=== PATIENT | female | born 1950 | race Caucasian/White ===

== ENCOUNTER 2023-04-30 08:31 | Inpatient (IN) | payer OTHER ==
[2023-04-30] VITALS (27 sets, daily range): BP systolic 83–120; BP diastolic 45–72; PULSE 35–80; RESP 12–18; TEMP 96.4–98.1; O2SAT 90–100
[~2023-04-30] VITALS: Ht 170.2 cm; Wt 77.2 kg
[2023-04-30] MEDS ORDERED: DOPamine 1600MCG/ML D5W 250 ML IV ONE ×3 (08:33→09:15)
[2023-04-30] MEDS ORDERED: GLUCAGON EMERG KIT 1mg/1ml IV ONE (09:45)
[2023-04-30] MEDS ORDERED: SODIUM CHLORIDE 0.9% 1,000 ML IV ONE ×2 (10:00→11:45)
[2023-04-30 10:12] LABS: Urine Bacteria NONE SEEN /hpf (None Seen); Urine Blood Negative /uL (Negative); Urine Clarity HAZY (Clear); Urine Color Yellow (Yellow); Urine Mucus FEW (None Seen); Urine Protein, UAD 2+ (Negative); Urine Specific Gravity 1.027 (1.001-1.035); Urine WBC 59 /hpf (0 - 5); Urine WBC Clumps PRESENT /hpf (None Seen); Urine pH 5.5 (5.0-8.0)
[2023-04-30 10:17] LABS: Basophils # (auto) 0.1 10 ^3/uL (0-0.2); Basophils % (auto) 0.6 % (0.0-2.0); Eosinophils # (auto) 0.1 10 ^3/uL (0-0.8); Eosinophils % (auto) 0.8 % (0.0-7.0); Hematocrit 30.9 % (36.0-46.0); Hemoglobin 9.7 g/dL (12.2-16.2); Lymphocytes # (auto) 2.1 10 ^3/uL (0.4-5.4); Mean Corpuscular Hemoglobin 29.6 pg (28.0-32.0); Mean Corpuscular Hgb Conc. 31.5 g/dL (32.0-36.0); Mean Corpuscular Volume 94.1 fL (80.0-100.0); Monocytes % (auto) 10.6 % (0.0-12.0); Neutrophils # (auto) 5.9 10 ^3/uL (1.6-8.6); Nucleated Red Blood Cells % 0.2 %; Red Blood Cells 3.28 10^6/uL (4.0-5.20); Red Cell Distribution Width 15.2 % (11.8-14.3); White Blood Cell 9.1 10^3/uL (4.4-10.8)
[2023-04-30 10:25] LABS: Alanine Aminotransferase 671 U/L (7-40); Albumin 4.1 g/dL (3.2-4.8); Alkaline Phosphatase 194 U/L (46-116); Anion Gap 12 (5-15); BUN/Creatinine Ratio 25.2 (10.0-20.0); Bilirubin, Total 0.3 mg/dL (0.2-1.0); Blood Urea Nitrogen 62 mg/dL (9-23); Calcium 8.5 mg/dL (8.5-10.1); Carbon Dioxide 19 mmol/L (20-30); Chloride 99 mmol/L (98-107); Glucose 226 mg/dL (74-106); Sodium 130 mmol/L (136-145); Total Protein 6.2 g/dL (5.7-8.2)
[2023-04-30 10:36] LABS: Aspartate Aminotransferase 1188 U/L (13-40); Potassium 6.2 mmol/L (3.5-5.1)
[2023-04-30] MEDS ORDERED: SODIUM BICARBONATE 8.4% INJ 50ML SYRINGE IV ONE (10:45)
[2023-04-30] MEDS ORDERED: DEXTROSE (50%) 50ML SYRG IV ONE (10:45)
[2023-04-30] MEDS ORDERED: InsuLIN REG 1unit/0.01ml Soln (100units/ml) IV ONE (10:45)
[2023-04-30] MEDS ORDERED: CALCIUM GLUC 1,000mg/50ml-NS 50 ML IV ONE (10:45)
[2023-04-30] MEDS ORDERED: SODIUM ZIRCONIUM CYCL 10 GM PAK PO ONE (10:45)
[2023-04-30] MEDS ORDERED: FUROSEMIDE 20 MG/2 ML VIAL ONE (10:55)
[2023-04-30] MEDS ORDERED: FUROSEMIDE 20 MG/2 ML VIAL IV ONE (11:00)
[2023-04-30] MEDS ORDERED: SODIUM BICARBONATE 8.4% INJ 50ML SYRINGE ONE (11:16)
[2023-04-30] MEDS ORDERED: ATROPINE SULFATE 1 MG/1 ML VIAL ONE (11:23)
[2023-04-30] MEDS: ISOPROTERENOL HCL INJECTION 1 MG in D5W 5% 250 ML IV SCH ×4 (11:45→21:45)
[2023-04-30 11:58] LABS: Platelet Estimate Adequate
[2023-04-30 12:00] LABS: Giant Platelets Few; Large Platelets MODERATE
[2023-04-30] MEDS ORDERED: FUROSEMIDE 40 MG/4 ML VIAL ONE (12:48)
[2023-04-30] MEDS ORDERED: ETOMIDATE (2MG/ML) 20ML VIAL IV ONE ×2 (12:56→14:15)
[2023-04-30] MEDS ORDERED: ROCURONIUM 10MG/ML 10ML VIAL IV ONE ×2 (12:57→14:15)
[2023-04-30] MEDS ORDERED: MIDAZOLAM DRIP 50 mg/50mL 50 ML IV ONE (13:09)
[2023-04-30] MEDS: MIDAZOLAM DRIP 50 mg/50mL 50 ML IV SCH ×2 (13:10→18:37)
[2023-04-30] MEDS ORDERED: NITROGLYCERIN 0.4 MG SL TAB SL PRN (13:30)
[2023-04-30] MEDS ORDERED: PANTOPRAZOLE 40 MG/10 ML VIAL INJ IV ONE (13:30)
[2023-04-30] MEDS ORDERED: DEXTROSE (50%) 50ML SYRG IV PRN (13:30)
[2023-04-30] MEDS ORDERED: MORPHINE SULFATE INJ 2 MG/ml SYRG IV PRN (13:30)
[2023-04-30] MEDS ORDERED: FUR20T PO (13:37)
[2023-04-30] MEDS ORDERED: TROS20TA3 PO (13:37)
[2023-04-30] MEDS ORDERED: CIPR500T4 PO (13:37)
[2023-04-30] MEDS ORDERED: ESTR0.1C5 VG (13:37)
[2023-04-30] MEDS ORDERED: OMEP1CAP70 PO (13:37)
[2023-04-30] MEDS ORDERED: CARV25TA55 PO (13:37)
[2023-04-30] MEDS ORDERED: HYDR1TAB97 PO (13:37)
[2023-04-30] MEDS ORDERED: DULO1CAP5 PO (13:37)
[2023-04-30] MEDS ORDERED: CEPH250C2 PO (13:37)
[2023-04-30] MEDS ORDERED: ATOR20TA50 PO (13:37)
[2023-04-30] MEDS ORDERED: LEVO100T8 PO (13:37)
[2023-04-30] MEDS ORDERED: HYDR-4069 PO (13:37)
[2023-04-30] MEDS ORDERED: ANAG1CAP2 PO (13:37)
[2023-04-30] MEDS ORDERED: PREG-109 PO (13:37)
[2023-04-30] MEDS ORDERED: METF-370 PO (13:37)
[2023-04-30] MEDS ORDERED: cefTRIAXone 1GM/50ML D5W 50 ML IV SCH (13:41)
[2023-04-30] MEDS ORDERED: FUROSEMIDE 40 MG/4 ML VIAL IV ONE (14:15)
[2023-04-30 15:00] LABS: Base Excess -7.5 mmol/L (-2.0-2.0)
[2023-04-30] MEDS ORDERED: FUROSEMIDE 100 MG/10ML VIAL IV ONE (15:15)
[2023-04-30 16:11] LABS: Eosinophils # (auto) 0 10 ^3/uL (0-0.8); Eosinophils % (auto) 0.1 % (0.0-7.0); Hemoglobin 9.9 g/dL (12.2-16.2); Lymphocytes # (auto) 1.1 10 ^3/uL (0.4-5.4); Monocytes # (auto) 1.1 10 ^3/uL (0-1.3)
[2023-04-30 16:13] LABS: Basophils # (auto) 0 10 ^3/uL (0-0.2); Basophils % (auto) 0.3 % (0.0-2.0); Hematocrit 31.7 % (36.0-46.0); Lymphocytes % (auto) 7.9 % (10.0-50.0); Mean Corpuscular Hemoglobin 29.3 pg (28.0-32.0); Mean Corpuscular Hgb Conc. 31.3 g/dL (32.0-36.0); Mean Corpuscular Volume 93.7 fL (80.0-100.0); Neutrophils # (auto) 12.1 10 ^3/uL (1.6-8.6); Neutrophils % (auto) 83.7 % (37.0-80.0); Red Blood Cells 3.39 10^6/uL (4.0-5.20); White Blood Cell 14.4 10^3/uL (4.4-10.8)
[2023-04-30] MEDS: ACCU-CHEK COMFORT CURVE STRIP VI SCH ×2 (16:20→23:13)
[2023-04-30] MEDS: InsuLIN REG 1unit/0.01ml Soln (100units/ml) SC SCH ×2 (16:23→22:00)
[2023-04-30 16:42] LABS: Alanine Aminotransferase 806 U/L (7-40); Albumin 4.2 g/dL (3.2-4.8); Alkaline Phosphatase 202 U/L (46-116); Anion Gap 9 (5-15); Aspartate Aminotransferase > 1000 U/L (13-40); BUN/Creatinine Ratio 20.8 (10.0-20.0); Calcium 8.4 mg/dL (8.5-10.1); Carbon Dioxide 23 mmol/L (20-30); Chloride 101 mmol/L (98-107); Cholesterol 96 mg/dL (< 200); Glucose 269 mg/dL (74-106); HDL Cholesterol 48 mg/dL (40-59); LDL Cholesterol 35 mg/dL (< 100); Potassium 5.4 mmol/L (3.5-5.1); Sodium 133 mmol/L (136-145); Triglycerides 102 mg/dL (< 150)
[2023-04-30 16:43] LABS: Bilirubin, Total 0.4 mg/dL (0.2-1.0); Phosphorus 6.9 mg/dL (2.4-5.1); Total Protein 6.6 g/dL (5.7-8.2)
[2023-04-30] MEDS: SODIUM CHLORIDE 0.9% 1,000 ML IV SCH (17:13)
[2023-04-30 17:17] LABS: Blood Urea Nitrogen 52 mg/dL (9-23)
[2023-04-30 17:19] LABS: Magnesium 3.7 mg/dL (1.6-2.6)
[2023-04-30] MEDS: IPRATROPIUM BROM 0.5 MG/2.5ML INH SOL NEB SCH ×2 (18:00→22:55)
[2023-04-30] MEDS: ALBUTEROL SULF 2.5 MG/0.5ML(0.5%) NEB SOLN NEB SCH ×2 (18:00→22:55)
[2023-04-30 20:17] LABS: Base Excess -4.4 mmol/L (-2.0-2.0)
[2023-04-30] MEDS: cefTRIAXone 1GM/50ML D5W 50 ML IV SCH (21:54)
[2023-04-30] MEDS: fentaNYL Drip 2500mCg/250mlNS 250 ML IV SCH (21:56)
[2023-04-30] MEDS: NOREPINEPHRINE 8 MG/250ML KIT 250 ML IV SCH (23:11)
[2023-04-30] MEDS: SODIUM ZIRCONIUM CYCL 10 GM PAK PO SCH (23:12)
[2023-04-30] MEDS: metroNIDAZOLE 500MG/100ML 100 ML IV SCH (23:12)
[2023-04-30 23:56] LABS: Protein, Urine 107.4 mg/dL (0.0-11.9)
[2023-04-30 23:59] LABS: Creatinine, Urine 176.08 mg/dL (30.0-125.0)
[2023-05-01] VITALS (96 sets, daily range): BP systolic 81–134; BP diastolic 39–77; PULSE 60–80; RESP 18–28; TEMP 96.4–100.4; O2SAT 96–100
[2023-05-01] MEDS: ISOPROTERENOL HCL INJECTION 1 MG in D5W 5% 250 ML IV SCH ×7 (01:05→21:05)
[2023-05-01] MEDS: ALBUTEROL SULF 2.5 MG/0.5ML(0.5%) NEB SOLN NEB SCH ×6 (02:34→22:19)
[2023-05-01] MEDS: IPRATROPIUM BROM 0.5 MG/2.5ML INH SOL NEB SCH ×6 (02:34→22:19)
[2023-05-01 05:13] LABS: INR 1.1 (0.9-1.15); Partial Thromboplastin Time 28.2 SEC (24.5-34.5); Prothrombin Time 11.5 sec (9.3-11.8)
[2023-05-01 05:18] LABS: Basophils # (auto) 0 10 ^3/uL (0-0.2); Basophils % (auto) 0.4 % (0.0-2.0); Eosinophils # (auto) 0.1 10 ^3/uL (0-0.8); Eosinophils % (auto) 1.1 % (0.0-7.0); Hematocrit 27.8 % (36.0-46.0); Hemoglobin 8.8 g/dL (12.2-16.2); Lymphocytes # (auto) 2.8 10 ^3/uL (0.4-5.4); Lymphocytes % (auto) 24.8 % (10.0-50.0); Mean Corpuscular Hemoglobin 29.2 pg (28.0-32.0); Mean Corpuscular Hgb Conc. 31.7 g/dL (32.0-36.0); Mean Corpuscular Volume 92.2 fL (80.0-100.0); Monocytes # (auto) 0.7 10 ^3/uL (0-1.3); Monocytes % (auto) 6.2 % (0.0-12.0); Neutrophils # (auto) 7.6 10 ^3/uL (1.6-8.6); Neutrophils % (auto) 67.5 % (37.0-80.0); Nucleated Red Blood Cells % 0.2 %; Red Blood Cells 3.02 10^6/uL (4.0-5.20); White Blood Cell 11.2 10^3/uL (4.4-10.8)
[2023-05-01 05:25] LABS: Alanine Aminotransferase 708 U/L (7-40); Albumin 3.8 g/dL (3.2-4.8); Alkaline Phosphatase 166 U/L (46-116); Anion Gap 9 (5-15); Aspartate Aminotransferase 951 U/L (13-40); BUN/Creatinine Ratio 22.6 (10.0-20.0); Blood Urea Nitrogen 44 mg/dL (9-23); Calcium 7.5 mg/dL (8.7-10.4); Carbon Dioxide 24 mmol/L (20-30); Chloride 102 mmol/L (98-107); Glucose 136 mg/dL (74-106); Potassium 4.4 mmol/L (3.5-5.1); Sodium 135 mmol/L (136-145)
[2023-05-01 05:26] LABS: Bilirubin, Total 0.2 mg/dL (0.2-1.0)
[2023-05-01] MEDS: SODIUM CHLORIDE 0.9% 1,000 ML IV SCH ×2 (05:35→14:13)
[2023-05-01] MEDS: InsuLIN REG 1unit/0.01ml Soln (100units/ml) SC SCH ×3 (05:38→18:01)
[2023-05-01] MEDS: metroNIDAZOLE 500MG/100ML 100 ML IV SCH ×2 (05:38→14:13)
[2023-05-01] MEDS: ACCU-CHEK COMFORT CURVE STRIP VI SCH ×3 (05:38→17:59)
[2023-05-01 05:46] LABS: Bilirubin, Direct 0.1 mg/dL (<0.3)
[2023-05-01 07:15] LABS: Base Excess -4.2 mmol/L (-2.0-2.0)
[2023-05-01] MEDS: cefTRIAXone 1GM/50ML D5W 50 ML IV SCH ×2 (08:44→08:46)
[2023-05-01] MEDS: PANTOPRAZOLE 40 MG/10 ML VIAL INJ IV SCH (09:47)
[2023-05-01] MEDS: SODIUM ZIRCONIUM CYCL 10 GM PAK PO SCH ×2 (09:48→21:27)
[2023-05-01] MEDS ORDERED: FUROSEMIDE 100 MG/10ML VIAL IV SCH (10:00)
[2023-05-01] MEDS ORDERED: ENOXAPARIN SOD 30 MG/0.3 ML SYRINGE SC SCH (10:00)
[2023-05-01] MEDS ORDERED: DOXYCYCLINE 100MG/250ML 250 ML IV SCH (11:15)
[2023-05-01] MEDS ORDERED: cefTRIAXone 1GM/50ML D5W 50 ML IV SCH (11:15)
[2023-05-01] MEDS: MIDAZOLAM DRIP 50 mg/50mL 50 ML IV SCH (12:25)
[2023-05-01] MEDS: NOREPINEPHRINE 8 MG/250ML KIT 250 ML IV SCH (14:31)
[2023-05-01] MEDS ORDERED: LIDOCAINE 2%HCL (LOCAL ANESTH.) INJ 20ML MDV ONE (14:54)
[2023-05-01] MEDS ORDERED: VANCOMYCIN HCL 1000 MG VL ONE (15:14)
[2023-05-01] MEDS ORDERED: DAPTOmycin 0 MG in SODIUM CHL 0.9% 50 ML IV SCH (15:15)
[2023-05-01] MEDS ORDERED: PROPOFOL 100 ML IV ONE (15:28)
[2023-05-01] MEDS ORDERED: IODIXANOL 320MG/ML 100ML BTL IV ONE (15:41)
[2023-05-01] MEDS ORDERED: DAPTOmycin 500 MG in SODIUM CHL 0.9% 50 ML IV ONE (15:45)
[2023-05-01] MEDS ORDERED: DAPTOmycin 500 MG in SODIUM CHL 0.9% 50 ML IV SCH (15:45)
[2023-05-01] MEDS ORDERED: VANCOMYCIN 1GM/200ML 0 ML IV ONE (15:54)
[2023-05-01] MEDS: PROPOFOL 100 ML IV SCH (16:07)
[2023-05-01] MEDS: fentaNYL Drip 2500mCg/250mlNS 250 ML IV SCH ×2 (16:29→18:02)
[2023-05-01] MEDS ORDERED: GELATIN 1 SPONGE SIZE 50 TOP ONE (16:48)
[2023-05-01] MEDS ORDERED: DEXTROSE (50%) 50ML SYRG IV PRN (17:15)
[2023-05-01] MEDS ORDERED: ATROPINE SULF 1 MG/10ml SYR IV ONE (18:44)
[2023-05-01] MEDS: PIPERACILLIN-TAZOB 3.375GM 100 ML IV SCH (21:27)
[2023-05-02] VITALS (101 sets, daily range): BP systolic 82–132; BP diastolic 32–90; PULSE 30–68; RESP 16–19; TEMP 98.1–100.9; O2SAT 87–100
[2023-05-02] MEDS: ISOPROTERENOL HCL INJECTION 1 MG in D5W 5% 250 ML IV SCH ×6 (00:25→17:05)
[2023-05-02] MEDS: ACCU-CHEK COMFORT CURVE STRIP VI SCH ×5 (01:45→23:47)
[2023-05-02] MEDS: InsuLIN REG 1unit/0.01ml Soln (100units/ml) SC SCH ×5 (01:47→23:48)
[2023-05-02] MEDS: DOXYCYCLINE 100 MG TAB/CAP PO SCH ×2 (01:47→09:03)
[2023-05-02] MEDS: ALBUTEROL SULF 2.5 MG/0.5ML(0.5%) NEB SOLN NEB SCH ×6 (02:26→22:11)
[2023-05-02] MEDS: IPRATROPIUM BROM 0.5 MG/2.5ML INH SOL NEB SCH ×6 (02:26→22:11)
[2023-05-02] MEDS: MIDAZOLAM DRIP 50 mg/50mL 50 ML IV SCH (02:50)
[2023-05-02 03:50] LABS: Eosinophils # (auto) 0.3 10 ^3/uL (0-0.8); Hematocrit 24.8 % (36.0-46.0); Monocytes # (auto) 0.8 10 ^3/uL (0-1.3); Nucleated Red Blood Cells % 0.1 %; Red Cell Distribution Width 15.3 % (11.8-14.3)
[2023-05-02 03:53] LABS: Basophils # (auto) 0 10 ^3/uL (0-0.2); Basophils % (auto) 0.3 % (0.0-2.0); Eosinophils % (auto) 2.8 % (0.0-7.0); Hemoglobin 7.9 g/dL (12.2-16.2); Lymphocytes # (auto) 1.5 10 ^3/uL (0.4-5.4); Lymphocytes % (auto) 14.2 % (10.0-50.0); Mean Corpuscular Hemoglobin 29.9 pg (28.0-32.0); Mean Corpuscular Hgb Conc. 32.1 g/dL (32.0-36.0); Mean Corpuscular Volume 93.3 fL (80.0-100.0); Monocytes % (auto) 7.9 % (0.0-12.0); Neutrophils # (auto) 7.8 10 ^3/uL (1.6-8.6); Neutrophils % (auto) 74.8 % (37.0-80.0); Red Blood Cells 2.65 10^6/uL (4.0-5.20); White Blood Cell 10.4 10^3/uL (4.4-10.8)
[2023-05-02 04:00] LABS: % Iron Saturation 5.5 % (15-50)
[2023-05-02 04:05] LABS: Alanine Aminotransferase 483 U/L (7-40); Albumin 3.4 g/dL (3.2-4.8); Alkaline Phosphatase 142 U/L (46-116); Anion Gap 6 (5-15); Aspartate Aminotransferase 275 U/L (13-40); Bilirubin, Total 0.3 mg/dL (0.2-1.0); Carbon Dioxide 25 mmol/L (20-30); Chloride 105 mmol/L (98-107); Glucose 166 mg/dL (74-106); Potassium 3.5 mmol/L (3.5-5.1); Sodium 136 mmol/L (136-145); Total Protein 5.4 g/dL (5.7-8.2)
[2023-05-02 04:22] LABS: Blood Urea Nitrogen 28 mg/dL (9-23)
[2023-05-02] MEDS: PIPERACILLIN-TAZOB 3.375GM 100 ML IV SCH (05:15)
[2023-05-02] MEDS: fentaNYL Drip 2500mCg/250mlNS 250 ML IV SCH (05:35)
[2023-05-02] MEDS ORDERED: VANCOMYCIN 1GM/200ML 200 ML IV SCH (06:00)
[2023-05-02 06:55] LABS: Giant Platelets Few; Large Platelets MODERATE; Platelet Estimate Decreased
[2023-05-02 07:59] LABS: Base Excess -0.3 mmol/L (-2.0-2.0)
[2023-05-02] MEDS ORDERED: SODIUM FERR GLUC 62.5MG/5ML 125 MG in SODIUM CHL 0.9% 100 ML IV ONE (08:30)
[2023-05-02 08:37] LABS: Hepatitis B Surface Antigen Negative (Negative)
[2023-05-02 08:58] LABS: Hepatitis A Ab IgM Negative
[2023-05-02 08:59] LABS: Hepatitis B Core IgM Negative; Hepatitis C Antibody Negative (Negative)
[2023-05-02] MEDS: PANTOPRAZOLE 40 MG/10 ML VIAL INJ IV SCH (09:04)
[2023-05-02] MEDS: VANCOMYCIN 1GM/200ML 200 ML IV SCH (09:04)
[2023-05-02 09:10] LABS: Hepatitis B Core Total AB Negative (Negative)
[2023-05-02] MEDS ORDERED: ENOXAPARIN SOD 30 MG/0.3 ML SYRINGE SC SCH (10:00)
[2023-05-02 10:15] LABS: Hepatitis B Surface Antibody Negative (Negative); Hepatitis C Antibody Negative (Negative)
[2023-05-02 10:16] LABS: Hepatitis A Total Antibody Negative (Negative); Hepatitis B Surface Antigen Negative (Negative)
[2023-05-02] MEDS: ACETAMINOPHEN 650 mg PER 20.3 mL UD GT PRN ×2 (13:26→20:46)
[2023-05-02] MEDS: PROPOFOL 100 ML IV SCH (16:00)
[2023-05-02] MEDS: NOREPINEPHRINE 8 MG/250ML KIT 250 ML IV SCH ×2 (17:14→20:47)
[2023-05-02] MEDS: CEFEPIME 2GM/50ML NS 50 ML IV SCH (22:23)
[2023-05-03] VITALS (104 sets, daily range): BP systolic 96–149; BP diastolic 35–90; PULSE 65–78; RESP 9–21; TEMP 97–100.8; O2SAT 98–100
[2023-05-03] MEDS: IPRATROPIUM BROM 0.5 MG/2.5ML INH SOL NEB SCH ×6 (02:10→22:33)
[2023-05-03] MEDS: ALBUTEROL SULF 2.5 MG/0.5ML(0.5%) NEB SOLN NEB SCH ×5 (02:10→22:33)
[2023-05-03 04:15] LABS: Basophils # (auto) 0 10 ^3/uL (0-0.2); Basophils % (auto) 0.3 % (0.0-2.0); Eosinophils # (auto) 0.2 10 ^3/uL (0-0.8); Hematocrit 28.6 % (36.0-46.0); Hemoglobin 9.2 g/dL (12.2-16.2); Lymphocytes # (auto) 1.1 10 ^3/uL (0.4-5.4); Lymphocytes % (auto) 9.9 % (10.0-50.0); Mean Corpuscular Hemoglobin 29.7 pg (28.0-32.0); Mean Corpuscular Hgb Conc. 32.1 g/dL (32.0-36.0); Mean Corpuscular Volume 92.3 fL (80.0-100.0); Monocytes # (auto) 1.1 10 ^3/uL (0-1.3); Monocytes % (auto) 9.1 % (0.0-12.0); Neutrophils # (auto) 9.1 10 ^3/uL (1.6-8.6); Neutrophils % (auto) 78.7 % (37.0-80.0); Nucleated Red Blood Cells % 0.2 %; Red Cell Distribution Width 15.2 % (11.8-14.3); White Blood Cell 11.5 10^3/uL (4.4-10.8)
[2023-05-03 04:27] LABS: Calcium 7.3 mg/dL (8.7-10.4); Chloride 107 mmol/L (98-107); Potassium 3.8 mmol/L (3.5-5.1); Sodium 137 mmol/L (136-145)
[2023-05-03 04:28] LABS: Anion Gap 6 (5-15); Carbon Dioxide 24 mmol/L (20-30)
[2023-05-03 04:33] LABS: BUN/Creatinine Ratio 23.1 (10.0-20.0); Blood Urea Nitrogen 18 mg/dL (9-23); Glucose 140 mg/dL (74-106)
[2023-05-03 04:57] LABS: Platelet Estimate Decreased
[2023-05-03 04:58] LABS: Giant Platelets Few
[2023-05-03] MEDS: ACCU-CHEK COMFORT CURVE STRIP VI SCH ×3 (05:54→19:59)
[2023-05-03] MEDS: InsuLIN REG 1unit/0.01ml Soln (100units/ml) SC SCH ×3 (05:54→19:58)
[2023-05-03 07:59] LABS: Base Excess 0.4 mmol/L (-2.0-2.0)
[2023-05-03] MEDS: PANTOPRAZOLE 40 MG/10 ML VIAL INJ IV SCH (10:00)
[2023-05-03] MEDS: CEFEPIME 2GM/50ML NS 50 ML IV SCH (10:00)
[2023-05-03] MEDS: VANCOMYCIN 1GM/200ML 200 ML IV SCH (10:00)
[2023-05-03] MEDS ORDERED: FUROSEMIDE 20 MG/2 ML VIAL ONE (11:24)
[2023-05-03] MEDS ORDERED: FUROSEMIDE 20 MG/2 ML VIAL IV ONE (11:30)
[2023-05-03] MEDS ORDERED: IRON SUCROSE COMPLEX 100 ML IV SCH (12:00)
[2023-05-03] MEDS: MIDAZOLAM DRIP 50 mg/50mL 50 ML IV SCH (13:45)
[2023-05-03] MEDS: SODIUM FERR GLUC 125 MG in NS 100 ML IV SCH (13:57)
[2023-05-03 14:11] LABS: Base Excess -0.7 mmol/L (-2.0-2.0)
[2023-05-03] MEDS: PROPOFOL 100 ML IV SCH (15:04)
[2023-05-03] MEDS: ACETAMINOPHEN 650 mg PER 20.3 mL UD GT PRN (15:10)
[2023-05-03] MEDS: levoFLOXacin 500MG 100 ML IV SCH (16:38)
[2023-05-03] MEDS: fentaNYL Drip 2500mCg/250mlNS 250 ML IV SCH (19:58)
[2023-05-04] VITALS (105 sets, daily range): BP systolic 107–171; BP diastolic 42–103; PULSE 65–91; RESP 14–29; TEMP 96.8–99.5; O2SAT 88–100
[2023-05-04] MEDS: ACCU-CHEK COMFORT CURVE STRIP VI SCH ×5 (00:54→23:41)
[2023-05-04] MEDS: IPRATROPIUM BROM 0.5 MG/2.5ML INH SOL NEB SCH ×6 (02:48→22:37)
[2023-05-04] MEDS: ALBUTEROL SULF 2.5 MG/0.5ML(0.5%) NEB SOLN NEB SCH ×6 (02:48→22:37)
[2023-05-04 04:42] LABS: Chloride 107 mmol/L (98-107); Potassium 3.9 mmol/L (3.5-5.1); Sodium 140 mmol/L (136-145)
[2023-05-04 04:43] LABS: Anion Gap 11 (5-15); Calcium 7.9 mg/dL (8.7-10.4); Carbon Dioxide 22 mmol/L (20-30)
[2023-05-04 04:47] LABS: Basophils # (auto) 0 10 ^3/uL (0-0.2); Basophils % (auto) 0.2 % (0.0-2.0); Eosinophils # (auto) 0.4 10 ^3/uL (0-0.8); Eosinophils % (auto) 3.2 % (0.0-7.0); Hematocrit 31.8 % (36.0-46.0); Hemoglobin 10.2 g/dL (12.2-16.2); Lymphocytes # (auto) 1.2 10 ^3/uL (0.4-5.4); Mean Corpuscular Hgb Conc. 31.9 g/dL (32.0-36.0); Mean Corpuscular Volume 93.9 fL (80.0-100.0); Monocytes # (auto) 1.3 10 ^3/uL (0-1.3); Monocytes % (auto) 10.1 % (0.0-12.0); Neutrophils # (auto) 9.5 10 ^3/uL (1.6-8.6); Neutrophils % (auto) 76.5 % (37.0-80.0); Red Blood Cells 3.39 10^6/uL (4.0-5.20); Red Cell Distribution Width 15.5 % (11.8-14.3); White Blood Cell 12.4 10^3/uL (4.4-10.8)
[2023-05-04 04:48] LABS: BUN/Creatinine Ratio 18.9 (10.0-20.0); Blood Urea Nitrogen 14 mg/dL (9-23); Glucose 145 mg/dL (74-106)
[2023-05-04] MEDS: NOREPINEPHRINE 8 MG/250ML KIT 250 ML IV SCH (04:52)
[2023-05-04] MEDS: InsuLIN REG 1unit/0.01ml Soln (100units/ml) SC SCH ×5 (06:00→23:42)
[2023-05-04 07:07] LABS: Base Excess -3.4 mmol/L (-2.0-2.0)
[2023-05-04] MEDS ORDERED: methylPREDNISolone SOD SUCC 40 MG/ML VL IV ONE (08:45)
[2023-05-04 08:47] LABS: Giant Platelets Few
[2023-05-04 08:52] LABS: Large Platelets MODERATE; Platelet Estimate Decreased
[2023-05-04 09:00] LABS: Base Excess -1.9 mmol/L (-2.0-2.0)
[2023-05-04] MEDS: VANCOMYCIN 1GM/200ML 200 ML IV SCH (09:18)
[2023-05-04] MEDS: levoFLOXacin 500MG 100 ML IV SCH (09:18)
[2023-05-04] MEDS: FLORASTOR (S. BOULARDII) 250 MG CAP PO SCH (09:19)
[2023-05-04] MEDS: PANTOPRAZOLE 40 MG/10 ML VIAL INJ IV SCH (09:19)
[2023-05-04] MEDS: SODIUM FERR GLUC 125 MG in NS 100 ML IV SCH (12:29)
[2023-05-04] MEDS: MIDAZOLAM DRIP 50 mg/50mL 50 ML IV SCH (13:45)
[2023-05-04] MEDS: methylPREDNISolone SOD SUCC 40 MG/ML VL IV SCH ×2 (15:31→22:18)
[2023-05-04] MEDS: fentaNYL Drip 2500mCg/250mlNS 250 ML IV SCH (18:00)
[2023-05-04] MEDS: PROPOFOL 100 ML IV SCH (20:32)
[2023-05-05] VITALS (82 sets, daily range): BP systolic 110–177; BP diastolic 40–102; PULSE 65–100; RESP 12–35; TEMP 97–99.5; O2SAT 99–100
[2023-05-05] MEDS: IPRATROPIUM BROM 0.5 MG/2.5ML INH SOL NEB SCH ×6 (02:31→22:35)
[2023-05-05] MEDS: ALBUTEROL SULF 2.5 MG/0.5ML(0.5%) NEB SOLN NEB SCH ×6 (02:31→22:35)
[2023-05-05] MEDS: PROPOFOL 100 ML IV SCH ×4 (03:46→23:10)
[2023-05-05 04:10] LABS: Basophils # (auto) 0.1 10 ^3/uL (0-0.2); Basophils % (auto) 0.6 % (0.0-2.0); Chloride 108 mmol/L (98-107); Eosinophils # (auto) 0 10 ^3/uL (0-0.8); Hematocrit 31.7 % (36.0-46.0); Hemoglobin 10.1 g/dL (12.2-16.2); Lymphocytes # (auto) 1.1 10 ^3/uL (0.4-5.4); Lymphocytes % (auto) 8.2 % (10.0-50.0); Mean Corpuscular Hemoglobin 29.7 pg (28.0-32.0); Mean Corpuscular Volume 92.8 fL (80.0-100.0); Monocytes # (auto) 0.5 10 ^3/uL (0-1.3); Monocytes % (auto) 4.2 % (0.0-12.0); Neutrophils # (auto) 11.2 10 ^3/uL (1.6-8.6); Nucleated Red Blood Cells % 0.1 %; Potassium 4.1 mmol/L (3.5-5.1); Red Blood Cells 3.41 10^6/uL (4.0-5.20); Red Cell Distribution Width 15.7 % (11.8-14.3); Sodium 141 mmol/L (136-145); White Blood Cell 12.9 10^3/uL (4.4-10.8)
[2023-05-05 04:11] LABS: Anion Gap 13 (5-15); Calcium 8.5 mg/dL (8.7-10.4); Carbon Dioxide 20 mmol/L (20-30)
[2023-05-05 04:16] LABS: BUN/Creatinine Ratio 19.8 (10.0-20.0); Blood Urea Nitrogen 17 mg/dL (9-23); Glucose 187 mg/dL (74-106)
[2023-05-05] MEDS: methylPREDNISolone SOD SUCC 40 MG/ML VL IV SCH ×3 (05:55→21:38)
[2023-05-05] MEDS: ACCU-CHEK COMFORT CURVE STRIP VI SCH ×3 (05:56→17:26)
[2023-05-05] MEDS: InsuLIN REG 1unit/0.01ml Soln (100units/ml) SC SCH ×3 (05:58→17:27)
[2023-05-05] MEDS: MIDAZOLAM DRIP 50 mg/50mL 50 ML IV SCH (07:20)
[2023-05-05] MEDS: PANTOPRAZOLE 40 MG/10 ML VIAL INJ IV SCH (07:41)
[2023-05-05] MEDS: FLORASTOR (S. BOULARDII) 250 MG CAP PO SCH (07:41)
[2023-05-05] MEDS: VANCOMYCIN 1GM/200ML 200 ML IV SCH (07:41)
[2023-05-05] MEDS: levoFLOXacin 500MG 100 ML IV SCH (07:41)
[2023-05-05] MEDS ORDERED: hydrALAZINE HCL 20 MG/ML VL IV PRN (08:45)
[2023-05-05] MEDS ORDERED: chlordiazePOXIDE HCL 25 MG CAP PO PRN (10:30)
[2023-05-05] MEDS: chlordiazePOXIDE HCL 25 MG CAP PO SCH ×2 (11:00→21:38)
[2023-05-05] MEDS: QUEtiapine FUMARATE 25 MG TAB NG SCH ×2 (11:00→21:38)
[2023-05-05] MEDS: NOREPINEPHRINE 8 MG/250ML KIT 250 ML IV SCH (11:09)
[2023-05-05] MEDS: SODIUM FERR GLUC 125 MG in NS 100 ML IV SCH (13:07)
[2023-05-05] MEDS: fentaNYL Drip 2500mCg/250mlNS 250 ML IV SCH (14:15)
[2023-05-05] MEDS ORDERED: Glucerna 1.2 Cal 1Liter BOTTLE GT SCH (16:15)
[2023-05-06] VITALS (101 sets, daily range): BP systolic 108–171; BP diastolic 40–95; PULSE 65–93; RESP 10–27; TEMP 96.8–99.3; O2SAT 96–100
[2023-05-06] MEDS: ACCU-CHEK COMFORT CURVE STRIP VI SCH ×5 (00:02→23:43)
[2023-05-06] MEDS: InsuLIN REG 1unit/0.01ml Soln (100units/ml) SC SCH ×5 (00:04→23:45)
[2023-05-06] MEDS: IPRATROPIUM BROM 0.5 MG/2.5ML INH SOL NEB SCH ×6 (02:40→21:55)
[2023-05-06] MEDS: ALBUTEROL SULF 2.5 MG/0.5ML(0.5%) NEB SOLN NEB SCH ×6 (02:40→21:55)
[2023-05-06 04:09] LABS: Basophils # (auto) 0.1 10 ^3/uL (0-0.2); Basophils % (auto) 0.5 % (0.0-2.0); Eosinophils # (auto) 0 10 ^3/uL (0-0.8); Hematocrit 28.6 % (36.0-46.0); Hemoglobin 9.3 g/dL (12.2-16.2); Lymphocytes # (auto) 0.9 10 ^3/uL (0.4-5.4); Lymphocytes % (auto) 6.6 % (10.0-50.0); Mean Corpuscular Hemoglobin 29.9 pg (28.0-32.0); Mean Corpuscular Hgb Conc. 32.5 g/dL (32.0-36.0); Mean Corpuscular Volume 91.9 fL (80.0-100.0); Monocytes # (auto) 1.1 10 ^3/uL (0-1.3); Monocytes % (auto) 8.5 % (0.0-12.0); Neutrophils # (auto) 10.9 10 ^3/uL (1.6-8.6); Neutrophils % (auto) 84.4 % (37.0-80.0); Nucleated Red Blood Cells % 0.2 %; Red Blood Cells 3.11 10^6/uL (4.0-5.20); Red Cell Distribution Width 16.1 % (11.8-14.3); White Blood Cell 12.9 10^3/uL (4.4-10.8)
[2023-05-06 04:28] LABS: Alanine Aminotransferase 190 U/L (7-40); Albumin 3.7 g/dL (3.2-4.8); Alkaline Phosphatase 120 U/L (46-116); Anion Gap 10 (5-15); Aspartate Aminotransferase 32 U/L (13-40); Bilirubin, Total 0.3 mg/dL (0.2-1.0); Blood Urea Nitrogen 25 mg/dL (9-23); Calcium 8.5 mg/dL (8.7-10.4); Carbon Dioxide 22 mmol/L (20-30); Chloride 108 mmol/L (98-107); Glucose 211 mg/dL (74-106); Potassium 4.2 mmol/L (3.5-5.1); Sodium 140 mmol/L (136-145)
[2023-05-06] MEDS: PROPOFOL 100 ML IV SCH (05:07)
[2023-05-06 05:58] LABS: Base Excess -1.9 mmol/L (-2.0-2.0)
[2023-05-06] MEDS: methylPREDNISolone SOD SUCC 40 MG/ML VL IV SCH ×3 (05:59→21:43)
[2023-05-06] MEDS: PANTOPRAZOLE 40 MG/10 ML VIAL INJ IV SCH (07:50)
[2023-05-06] MEDS: chlordiazePOXIDE HCL 25 MG CAP PO SCH (07:50)
[2023-05-06] MEDS: QUEtiapine FUMARATE 25 MG TAB NG SCH (07:50)
[2023-05-06] MEDS: FLORASTOR (S. BOULARDII) 250 MG CAP PO SCH (07:51)
[2023-05-06] MEDS: levoFLOXacin 500MG 100 ML IV SCH (07:51)
[2023-05-06] MEDS: fentaNYL Drip 2500mCg/250mlNS 250 ML IV SCH (10:23)
[2023-05-06] MEDS: MIDAZOLAM DRIP 50 mg/50mL 50 ML IV SCH (10:23)
[2023-05-06] MEDS: NOREPINEPHRINE 8 MG/250ML KIT 250 ML IV SCH (10:24)
[2023-05-06] MEDS: SODIUM FERR GLUC 125 MG in NS 100 ML IV SCH (12:00)
[2023-05-06] MEDS: SODIUM ZIRCONIUM CYCL 10 GM PAK PO SCH (21:44)
[2023-05-07] VITALS (35 sets, daily range): BP systolic 141–163; BP diastolic 68–83; PULSE 64–68; RESP 11–22; TEMP 97.9–98.7; O2SAT 91–100
[2023-05-07] MEDS: ALBUTEROL SULF 2.5 MG/0.5ML(0.5%) NEB SOLN NEB SCH ×5 (02:08→18:43)
[2023-05-07] MEDS: IPRATROPIUM BROM 0.5 MG/2.5ML INH SOL NEB SCH ×5 (02:08→18:43)
[2023-05-07 04:17] LABS: Basophils # (auto) 0 10 ^3/uL (0-0.2); Basophils % (auto) 0.2 % (0.0-2.0); Eosinophils # (auto) 0 10 ^3/uL (0-0.8); Hematocrit 32.8 % (36.0-46.0); Hemoglobin 10.2 g/dL (12.2-16.2); Lymphocytes # (auto) 1.1 10 ^3/uL (0.4-5.4); Lymphocytes % (auto) 9.5 % (10.0-50.0); Mean Corpuscular Hemoglobin 29.8 pg (28.0-32.0); Mean Corpuscular Hgb Conc. 31.2 g/dL (32.0-36.0); Mean Corpuscular Volume 95.5 fL (80.0-100.0); Monocytes # (auto) 1.1 10 ^3/uL (0-1.3); Monocytes % (auto) 10.1 % (0.0-12.0); Neutrophils # (auto) 9.2 10 ^3/uL (1.6-8.6); Neutrophils % (auto) 80.2 % (37.0-80.0); Nucleated Red Blood Cells % 0.1 %; Red Blood Cells 3.43 10^6/uL (4.0-5.20); Red Cell Distribution Width 16.2 % (11.8-14.3); White Blood Cell 11.4 10^3/uL (4.4-10.8)
[2023-05-07 04:30] LABS: Alanine Aminotransferase 164 U/L (7-40); Alkaline Phosphatase 123 U/L (46-116); Anion Gap 9 (5-15); Aspartate Aminotransferase 47 U/L (13-40); BUN/Creatinine Ratio 22.1 (10.0-20.0); Blood Urea Nitrogen 21 mg/dL (9-23); Calcium 8.6 mg/dL (8.7-10.4); Carbon Dioxide 22 mmol/L (20-30); Chloride 111 mmol/L (98-107); Glucose 194 mg/dL (74-106); Potassium 3.9 mmol/L (3.5-5.1); Sodium 142 mmol/L (136-145)
[2023-05-07 04:31] LABS: Albumin 3.8 g/dL (3.2-4.8); Bilirubin, Total 0.4 mg/dL (0.2-1.0); Total Protein 6.2 g/dL (5.7-8.2)
[2023-05-07 04:40] LABS: Magnesium 2.6 mg/dL (1.6-2.6)
[2023-05-07] MEDS: ACCU-CHEK COMFORT CURVE STRIP VI SCH ×3 (06:02→18:00)
[2023-05-07] MEDS: methylPREDNISolone SOD SUCC 40 MG/ML VL IV SCH (06:02)
[2023-05-07] MEDS: InsuLIN REG 1unit/0.01ml Soln (100units/ml) SC SCH ×3 (06:11→18:00)
[2023-05-07] MEDS: SODIUM ZIRCONIUM CYCL 10 GM PAK PO SCH ×2 (07:03→18:49)
[2023-05-07] MEDS: FLORASTOR (S. BOULARDII) 250 MG CAP PO SCH (07:03)
[2023-05-07] MEDS: PANTOPRAZOLE 40 MG/10 ML VIAL INJ IV SCH (07:29)
[2023-05-07] MEDS ORDERED: levoFLOXacin 750MG 150 ML IV SCH (10:00)
[2023-05-07] MEDS ORDERED: ONDANSETRON HCL 4 MG/2 ML VIAL IV PRN (12:30)
[2023-05-07] MEDS ORDERED: traMADol HCL 50 MG TAB PO PRN (12:30)
[2023-05-07] MEDS ORDERED: traMADol HCL 50 MG TAB PO ONE (12:45)
[2023-05-07] MEDS ORDERED: traMADol HCL 50 MG TAB PO SCH (12:45)
== END 2023-05-07 19:22 | disposition short-term general hospital (02) | DRG 853 ==
LOC: ER 08:31 → EDBD 08:31 → TELE 13:27 → ICU WEST 18:21
PROVIDERS: ADMIT Internal Medicine; ATTEND Internal Medicine
PROC: 5A1955Z Respiratory Ventilation, Greater than 96 Consecutive Hours (ICD-10-PCS; 2023-04-30)
PROC: 0BH17EZ Insertion of Endotracheal Airway into Trachea, Via Natural or Artificial Opening (ICD-10-PCS; 2023-04-30)
PROC: 02H63JZ Insertion of Pacemaker Lead into Right Atrium, Percutaneous Approach (ICD-10-PCS; principal; 2023-05-01)
PROC: 0JH606Z Insertion of Pacemaker, Dual Chamber into Chest Subcutaneous Tissue and Fascia, Open Approach (ICD-10-PCS; 2023-05-01)
PROC: 02HK3JZ Insertion of Pacemaker Lead into Right Ventricle, Percutaneous Approach (ICD-10-PCS; 2023-05-01)
PROC: 30233N1 Transfusion of Nonautologous Red Blood Cells into Peripheral Vein, Percutaneous Approach (ICD-10-PCS; 2023-05-02)
PROC: 05HF33Z Insertion of Infusion Device into Left Cephalic Vein, Percutaneous Approach (ICD-10-PCS; 2023-05-03)
PROC: B54NZZA Ultrasonography of Left Upper Extremity Veins, Guidance (ICD-10-PCS; 2023-05-03)
DX: A41.9 Sepsis, unspecified organism (principal); I50.43 Acute on chronic combined systolic (congestive) and diastolic (congestive) heart failure; J96.01 Acute respiratory failure with hypoxia; R65.21 Severe sepsis with septic shock; J15.69 Pneumonia due to other Gram-negative bacteria; N17.0 Acute kidney failure with tubular necrosis; I44.2 Atrioventricular block, complete; E87.1 Hypo-osmolality and hyponatremia; I13.0 Hypertensive heart and chronic kidney disease with heart failure and stage 1 through stage 4 chronic kidney disease, or unspecified chronic kidney disease; N10 Acute pyelonephritis; J98.11 Atelectasis; D64.9 Anemia, unspecified; E87.5 Hyperkalemia; K80.20 Calculus of gallbladder without cholecystitis without obstruction; N18.31 Chronic kidney disease, stage 3a; D50.9 Iron deficiency anemia, unspecified; E11.65 Type 2 diabetes mellitus with hyperglycemia; Z79.891 Long term (current) use of opiate analgesic; Z79.899 Other long term (current) drug therapy; E78.5 Hyperlipidemia, unspecified; E11.22 Type 2 diabetes mellitus with diabetic chronic kidney disease
CPT/HCPCS: 31500; 33208; 36415; 36556; 36600; 70450; 71045; 71250; 76705; 80048; 80053; 80061; 80074; 80329; 81001; 82248; 82570; 82728; 82805; 82962; 83036; 83540; 83550; 83605; 83735; 83880; 83930; 84100; 84132; 84156; 84300; 84443; 84484; 85025; 85610; 85730; 86704; 86706; 86708; 86803; 86850; 86900; 86901; 86920; 87040; 87070; 87077; 87081; 87086; 87088; 87186; 87205; 87340; 92610; 93005; 93306; 94002; 94003; 94640; 96365; 96367; 96375; 97163; 99152; 99291; C9113; G0378; J0461; J0692; J1815; J1956; J2250; J2543; J2704; J3490; J7060; Q9967